=== PATIENT | female | born 1975 ===

== ENCOUNTER 2025-01-29 09:45 | Inpatient (IN) | payer OTHER ==
[~2025-01-29] VITALS: Ht 160 cm; Wt 70.3 kg
[2025-01-29 10:06] LABS: BASO % 0.4 % (0.1-1.2); EOS # 0.10 (0.04-0.54); EOS % 1.9 % (0.7-7.0); LYMPH # 1.34 (1.18-3.74); LYMPH % 25.0 % (19.3-53.1); MEAN PLATELET VOLUME 10.10 fl (9.4-12.4); MONO # 0.34 (0.24-0.82); MONO % 6.3 % (4.7-12.5); NEUT # 3.55 (1.56-6.13); NEUT % 66.2 % (34.0-71.1); RED CELL DISTRIBUTION WIDTH 11.9 % (11.6-14.4)
[2025-01-29] MEDS ORDERED: MAXIMUM D3325 MCG PO (10:21)
[2025-01-29] MEDS ORDERED: MIRALAX17 GM PO (10:21)
[2025-01-29 10:29] LABS: URINE BACTERIA 2436.9 uL (0.0-1933); URINE EPITHELIAL CELLS 26.9 uL (0.0-38.8); URINE RBC 38.7 uL (0.0-20.8); URINE WBC 25.0 uL (0.0-23.2)
[2025-01-29 10:42] LABS: ALT/SGPT 23.0 U/L (12-78); AST/SGOT 11.0 U/L (15-37); BILIRUBIN TOTAL 0.53 mg/dL (0.3-1.2); BUN CREA RATIO 19.0 (7.0-25.0); CREATININE SERUM 0.64 mg/dL (0.55-1.02); GFR 98.63; GLOBULINA 3.2 G/DL (2.4-3.5); GLUCOSE FASTING 106.0 mg/dL (65-100); OSMOLALITY SERUM 280.0 MOSM/KG (275-295)
[2025-01-29 10:43] LABS: INR 1.02
[2025-01-29 11:38] LABS: URINE APPEARANCE Clear; URINE BILIRRUBIN Negative (NEGATIVE); URINE BLOOD Negative; URINE COLOR Yellow; URINE GLUCOSE Negative (NEGATIVE); URINE KETONE Negative (NEGATIVE); URINE LEUKOCYTE Negative; URINE NITRATE Negative; URINE PROTEIN Negative (NEGATIVE); URINE UROBILINOGEN 0.2 E.U./dl
[2025-01-29 11:58] LABS: URINE CAST 0.14 uL (0.0-1.40)
[2025-01-30 15:54] LABS: RH POSITIVE
[2025-02-03] MEDS ORDERED: MORPHINE SULFATE 4 MG/ML CARTRIDGE IV PRN (12:45)
[2025-02-03] MEDS ORDERED: RINGERS SOLUTION,LACTATED 1,000 ML IV SCH (12:45)
[2025-02-03] MEDS ORDERED: OxyCODONE HCL 5 MG TABLET (ROXICODONE) PO PRN (12:45)
[2025-02-03] MEDS ORDERED: ONDANSETRON HCL 2 MG/ML VIAL IV PRN (12:45)
[2025-02-03] MEDS ORDERED: DEXTROSE 50 % IN WATER 0.5 G/ML VIAL IV PRN (12:45)
[2025-02-03] MEDS ORDERED: levoFLOXacin IN DEXTROSE 5 % 500MG/100ML PIGGYBAG IV SCH (13:30)
[2025-02-03] MEDS ORDERED: SUGAMMADEX SODIUM 200 MG/2 ML VIAL IV ONE (13:30)
[2025-02-03] MEDS ORDERED: BUPIVACAINE HCL 30 ML VIAL IV ONE (13:30)
[2025-02-03] MEDS ORDERED: LIDOCAINE HCL 1%/EPINEPHRINE 20ML VIAL IJ ONE (13:30)
[2025-02-03] MEDS ORDERED: METRONIDAZOLE/SODIUM CHLORIDE 500 MG/100 ML PIGGYBACK IV SCH (13:30)
[2025-02-03] MEDS ORDERED: MEPERIDINE HCL/PF 25 MG/ML VIAL IM PRN (14:00)
[2025-02-03] MEDS ORDERED: ACETAMINOPHEN 500 MG GEL..CAP PO SCH (14:00)
[2025-02-03] MEDS ORDERED: PROMETHAZINE HCL 25 MG/ML AMPUL IM PRN (14:00)
[2025-02-03 15:15] LABS: BASO % 0.2 % (0.1-1.2); EOS # 0.01 (0.04-0.54); EOS % 0.1 % (0.7-7.0); LYMPH # 0.89 (1.18-3.74); LYMPH % 5.2 % (19.3-53.1); MEAN PLATELET VOLUME 10.10 fl (9.4-12.4); MONO # 0.82 (0.24-0.82); MONO % 4.8 % (4.7-12.5); NEUT # 15.22 (1.56-6.13); NEUT % 89.3 % (34.0-71.1); RED CELL DISTRIBUTION WIDTH 11.9 % (11.6-14.4)
[2025-02-03 15:41] LABS: BUN CREA RATIO 12.0 (7.0-25.0); CREATININE SERUM 0.67 mg/dL (0.55-1.02); GFR 93.55; GLUCOSE FASTING 144.0 mg/dL (65-100); OSMOLALITY SERUM 280.0 MOSM/KG (275-295)
[2025-02-03 16:00] VITALS: BP 135/81; O2SAT 97
[2025-02-03 16:05] LABS: BAND MAN 4.0 %; LYMPHOCYTE MAN 8.0 %; MONOCYTE MAN 2.0 %; NEUTROPHILS MAN 86.0 %
[2025-02-03 16:55] VITALS: BP 135/81; O2SAT 97
[2025-02-03] MEDS ORDERED: HYOSCYAMINE SULFATE 0.125 MG TAB.SUBL SL SCH (17:00)
[2025-02-03] MEDS ORDERED: CELECOXIB 200 MG CAPSULE PO SCH (17:00)
[2025-02-03] MEDS ORDERED: GABAPENTIN 300 MG CAPSULE PO SCH (17:00)
[2025-02-03] MEDS ORDERED: FAMOTIDINE/PF 20 MG/2 ML VIAL IV PUSH SCH (21:00)
[2025-02-04 06:59] LABS: BASO % 0.2 % (0.1-1.2); EOS # 0.00 (0.04-0.54); EOS % 0.0 % (0.7-7.0); LYMPH # 0.99 (1.18-3.74); LYMPH % 8.6 % (19.3-53.1); MEAN PLATELET VOLUME 10.30 fl (9.4-12.4); MONO # 0.90 (0.24-0.82); MONO % 7.9 % (4.7-12.5); NEUT # 9.50 (1.56-6.13); NEUT % 83.0 % (34.0-71.1); RED CELL DISTRIBUTION WIDTH 11.8 % (11.6-14.4)
[2025-02-04 07:11] LABS: BUN CREA RATIO 10.0 (7.0-25.0); CREATININE SERUM 0.49 mg/dL (0.55-1.02); GFR 134.23; GLUCOSE FASTING 113.0 mg/dL (65-100); OSMOLALITY SERUM 276.0 MOSM/KG (275-295)
[2025-02-04 10:40] VITALS: BP 96/63; O2SAT 95
[2025-02-04 16:50] VITALS: BP 94/64; O2SAT 98
[2025-02-04] MEDS ORDERED: ENOXAPARIN SODIUM 40 MG/0.4 ML SYRINGE SUBCUTANEO SCH (17:00)
[2025-02-05 02:07] VITALS: BP 105/63; O2SAT 95
[2025-02-05 06:10] LABS: BASO % 0.3 % (0.1-1.2); EOS # 0.06 (0.04-0.54); EOS % 0.8 % (0.7-7.0); LYMPH # 1.52 (1.18-3.74); LYMPH % 20.8 % (19.3-53.1); MEAN PLATELET VOLUME 10.60 fl (9.4-12.4); MONO # 0.51 (0.24-0.82); MONO % 7.0 % (4.7-12.5); NEUT # 5.18 (1.56-6.13); NEUT % 70.8 % (34.0-71.1); RED CELL DISTRIBUTION WIDTH 12.1 % (11.6-14.4)
[2025-02-05 06:58] LABS: BUN CREA RATIO 17.0 (7.0-25.0); CREATININE SERUM 0.52 mg/dL (0.55-1.02); GFR 125.33; GLUCOSE FASTING 95.0 mg/dL (65-100); OSMOLALITY SERUM 282.0 MOSM/KG (275-295)
[2025-02-05 07:12] VITALS: BP 99/55; O2SAT 95
[2025-02-05] MEDS ORDERED: SOD FERRIC GLUC COMPLX/SUCROSE 62.5 MG in 0.9 % SODIUM CHLORIDE 50 ML IV SCH (09:00)
[2025-02-05] MEDS ORDERED: ENOXAPARIN SODIUM 40 MG/0.4 ML SYRINGE SUBCUTANEO SCH (09:00)
[2025-02-05] MEDS ORDERED: AMINOCAPROIC ACID 250 MG/ML VIAL IV STA (12:14)
[2025-02-05] MEDS ORDERED: AMINOCAPROIC ACID 20 MG/ML ML IV NR (13:30)
[2025-02-05 17:00] VITALS: BP 98/97; O2SAT 97
[2025-02-06 01:28] VITALS: BP 100/56; O2SAT 98
[2025-02-06 07:02] LABS: BASO % 0.4 % (0.1-1.2); EOS # 0.18 (0.04-0.54); EOS % 3.4 % (0.7-7.0); LYMPH # 1.60 (1.18-3.74); LYMPH % 30.2 % (19.3-53.1); MEAN PLATELET VOLUME 10.70 fl (9.4-12.4); MONO # 0.41 (0.24-0.82); MONO % 7.7 % (4.7-12.5); NEUT # 3.08 (1.56-6.13); NEUT % 58.1 % (34.0-71.1); RED CELL DISTRIBUTION WIDTH 12.2 % (11.6-14.4)
[2025-02-06 07:50] LABS: BUN CREA RATIO 18.0 (7.0-25.0); CREATININE SERUM 0.38 mg/dL (0.55-1.02); GFR 179.99; GLUCOSE FASTING 93.0 mg/dL (65-100); OSMOLALITY SERUM 285.0 MOSM/KG (275-295)
[2025-02-06 08:05] VITALS: BP 100/63; BP 102/67; O2SAT 96
[2025-02-06 16:00] VITALS: BP 94/63; O2SAT 96
[2025-02-07 01:09] VITALS: BP 103/57; O2SAT 98
[2025-02-07 08:05] VITALS: BP 106/70; O2SAT 97
[2025-02-07 16:00] VITALS: BP 88/56; O2SAT 96
[2025-02-08] VITALS: BP 91/59; O2SAT 98
[2025-02-08 08:00] VITALS: BP 103/68; O2SAT 96
[2025-02-08 11:11] LABS: BASO % 0.3 % (0.1-1.2); EOS # 0.20 (0.04-0.54); EOS % 3.4 % (0.7-7.0); LYMPH # 1.03 (1.18-3.74); LYMPH % 17.3 % (19.3-53.1); MEAN PLATELET VOLUME 11.60 fl (9.4-12.4); MONO # 0.42 (0.24-0.82); MONO % 7.0 % (4.7-12.5); NEUT # 4.27 (1.56-6.13); NEUT % 71.7 % (34.0-71.1); RED CELL DISTRIBUTION WIDTH 12.3 % (11.6-14.4)
[2025-02-08] MEDS ORDERED: HYOSCYAMINE0.125 M1 SL (11:42)
[2025-02-08] MEDS ORDERED: PAIN RELIEVER500 M2 PO (11:43)
== END 2025-02-08 13:50 | disposition home or self-care (01) | DRG 331 ==
LOC: SURG 02-03 06:11 → O/R 02-03 06:11 → SURH 02-03 07:00 → SURG 02-03 14:57
PROVIDERS: Colon & Rectal Surgery; Internal Medicine Geriatric Medicine; Surgery; ADMIT Surgery; ATTEND Surgery
PROC: 07BC4ZZ Excision of Pelvis Lymphatic, Percutaneous Endoscopic Approach (ICD-10-PCS; 2025-02-03)
PROC: 0DTF4ZZ Resection of Right Large Intestine, Percutaneous Endoscopic Approach (ICD-10-PCS; principal; 2025-02-03 07:00)
DX: D37.4 Neoplasm of uncertain behavior of colon (principal); R59.0 Localized enlarged lymph nodes; D12.2 Benign neoplasm of ascending colon; D64.9 Anemia, unspecified